=== PATIENT | male | born 1955 | race Caucasian/White ===

== ENCOUNTER 2019-08-03 14:02 | Emergency (ER) | payer SELFPAY ==
[~2019-08-03] VITALS: Ht 175.3 cm; Wt 90.7 kg
[2019-08-03 14:10] VITALS: BP 168/107
--- NOTE | 2019-08-03 14:15 | NUR ---
TRIAGE COMPLETE. DR ODOM AWARE OF BP. TO LOBBY AWAITNG BED IN ED.
--- NOTE | 2019-08-03 15:58 | NUR ---
63 Y/M PRESENTS TO ED FOR CELLULITIS OF L GARCIA X 4 DAY. ERYTHEMA AND EDEMA NOTED TO L GARCIA. PT REPORTS 2/10 PAIN, NON RADIATING PAIN. PURULENT DRAINAGE FROM SITE. SKIN WARM TO TOUCH, DENIES FEVER. RR EVEN AND UNLABORED. PMH- DENIES RX- DENIES
[2019-08-03] MEDS ORDERED: IBUPROFEN 600 MG TAB PO ONE (17:15)
[2019-08-03] MEDS ORDERED: cefTRIAXone 1,000 MG in LIDOCAINE MPF 1% 2.1 ML IM ONE (17:15)
[2019-08-03] MEDS ORDERED: LIDOCAINE MPF 1% 5 ML ONE (17:24)
[2019-08-03] MEDS ORDERED: cefTRIAXone 1,000 MG VIAL ONE (17:24)
[2019-08-03 17:53] VITALS: BP 135/75
--- NOTE | 2019-08-03 17:53 | NUR ---
Patient discharged with v/s stable. Written and verbal after care instructions given and explained. Patient alert, oriented and verbalized understanding of instructions. Ambulatory with steady gait. All questions addressed prior to discharge. ID band removed. Patient advised to follow up with PMD. Rx of BACTRIM, KEFLEX, IBUPROFEN given. Patient educated on indication of medication including possible reaction and side effects. Opportunity to ask questions provided and answered.
== END 2019-08-03 17:53 | disposition home or self-care (01) ==
LOC: MED 14:02
DX: L03.116 Cellulitis of left lower limb (principal); F17.210 Nicotine dependence, cigarettes, uncomplicated
CPT/HCPCS: 96372; 99283; J0696; J2001

== ENCOUNTER 2023-06-22 13:08 | Emergency (ER) | payer OTHER ==
[~2023-06-22] VITALS: Ht 175.3 cm; Wt 93.0 kg
[2023-06-22 13:18] VITALS: BP 145/100; PULSE 86; RESP 18; TEMP 98.2; O2SAT 95
[2023-06-22] MEDS ORDERED: KETOROLAC 30 MG/ML VIAL IM ONE (13:50)
[2023-06-22] MEDS ORDERED: cefTRIAXone 500 MG in LIDOCAINE MPF 1% 1 ML IM ONE (13:50)
[2023-06-22] MEDS ORDERED: cefTRIAXone 500 MG VIAL ONE (13:53)
[2023-06-22] MEDS ORDERED: LIDOCAINE MPF 1% 5 ML ONE (13:54)
[2023-06-22] MEDS ORDERED: SULF-59 PO (14:08)
[2023-06-22] MEDS ORDERED: IBUP-2213 PO (14:08)
[2023-06-22] MEDS ORDERED: CEPH-588 PO (14:08)
== END 2023-06-22 14:45 | disposition home or self-care (01) ==
LOC: MED 13:08
DX: L03.115 Cellulitis of right lower limb (principal); I10 Essential (primary) hypertension; Z79.1 Long term (current) use of non-steroidal anti-inflammatories (NSAID); Z79.2 Long term (current) use of antibiotics
CPT/HCPCS: 96372; 99284; J0696; J1885; J2001